=== PATIENT | female | born 1995 | race Caucasian/White ===

== ENCOUNTER 2019-03-18 20:49 | Emergency (ER) | payer BC ==
--- OUTSIDE RECORDS SUMMARY | 2019-03-18 20:51 | XMS REPORT | Summary of Care ---
:1995 Author Organization [facility] Address [address] [place] [address] Care Team Providers Name Role Phone Pcp, Patient Does Not Have A Primary Care Provider Reason for Visit Reason Comments Abdominal Pain since 202903/17/19 Encounter Details Date Type Department Care Team Description 03/18/2019 Nurse Visit [facility] Unknown, Attending Periumbilical abdominal Urgent Care Nurse, [facility] pain (Primary Dx) [address] [place] [address] Allergies Active Allergy Reactions Severity Noted Date Comments Propofol Unknown - See comments 03/16/2019 Vomiting and gets "super sick" documented as of this encounter (statuses as of 03/18/2019) Medications Medication Sig Dispensed Refills Start Date End Date Status norethindrone-ethinyl Take by mouth 0 Active estradiol 1-5 mg-mcg daily. tablet predniSONE 20 mg 3 tabs PO QD X 3 18 tablet 0 11/25/2018 Active tabletIndications: days, then 2 Sinusitis, tabs PO QD X 3 unspecified days, then 1 tab chronicity, PO QD X 3 days unspecified location cephALEXin 500 mg Take 1 capsule 14 capsule 0 03/16/2019 03/23/2019 Active capsuleIndications: by mouth 2 (two) Acute cystitis with times daily for hematuria 7 days. documented as of this encounter (statuses as of 03/18/2019) Active Problems No known active problemsdocumented as of this encounter (statuses as of 2018) Social History Tobacco Use Types Packs/Day Years Used Date Never Smoker Smokeless Tobacco: Never Used Alcohol Use Drinks/Week oz/Week Comments No Sex Assigned at Date Recorded Not on file Job Start Date Occupation Industry Not on file Not on file Not on file Travel History Travel Start Travel End No recent travel history available. documented as of this encounter Last Filed Vital Signs Vital Sign [place] Time Taken Comments Blood Pressure 135/84 03/18/2019 8:36 PM CDT Pulse 102 03/18/2019 8:36 PM CDT Temperature 36.9 C (98.5 F) 03/18/2019 8:36 PM CDT Respiratory Rate 16 03/18/2019 8:36 PM CDT Oxygen Saturation 98% 03/18/2019 8:36 PM CDT Inhaled Oxygen Concentration - - Weight 85.4 kg (188 lb 6 oz) 03/18/2019 8:36 PM CDT Height 170.2 cm (5' 7") 03/18/2019 8:36 PM CDT Body Mass Index 29.5 03/18/2019 8:36 PM CDT documented in this encounter Progress Notes Dionne Mercer RN - 03/18/2019 7:45 PM CDTcomplaining of abdominal pain. Patient reports since last night mid abdomen that radiates around back. Patient reports history of none Patient AAOx4, ambulatory, eupneic, skin pink/warm/dry, no acute distress noted. BP 135/84 | Pulse 102 | Temp 36.9 C (98.5 F) (Oral) | Resp 16 | Ht 5' 7 " (1.702 m) | Wt 188lb 6 oz (85.4 kg) | SpO2 98% | BMI 29.50 kg/m Patient encouraged to seek emergency medical treatment at local emergency room for further evaluation. Case discussed with ELTON Mcdonnell who agrees with treatment plan recommendations. Patient verbalizes understanding and states she will be seen at [facility]. Ambulance transport by 911 EMS offered to patient but refused. Left via private vehicle Patient leaves urgent care @ 7:50 en route to [facility] AAOx4, ambulatory, in no acute distress. documented in this encounter Plan of Treatment Health Maintenance Due Date Last Done Comments VARICELLA VACCINES (1 of 2 - 2007 13+ 2-dose series) HPV VACCINES (1 - Female 2009 3-dose series) DTaP,Tdap,and Td Vaccines (1 2013 - Tdap) INFLUENZA VACCINE 04/21/2019 PAP SMEAR 06/19/2020 06/19/2017 (Previously completed) PNEUMOCOCCAL 0-64 YEARS Aged Out No longer eligible based COMBINED SERIES on patient's age to complete this topic documented as of this encounter Results Not on filedocumented in this encounter Visit Diagnoses Diagnosis Periumbilical abdominal pain - Primary Abdominal pain, periumbilic documented in this encounter Insurance Payer Benefit Plan Subscriber ID Effective Dates Phone Address Type / Group [facility] [id number] 2014-Yenny [phone] [address] PPO/POS [place] [id number] [place] [address] documented as of this encounter
--- OUTSIDE RECORDS SUMMARY | 2019-03-18 20:51 | XMS REPORT ---
:1995 [facility] Address [address] [place] [address] [place] [address] Care Team Providers Name Role Phone Unavailable Unavailable Unavailable Problems This patient has no known problems. Allergies, Adverse Reactions, Alerts This patient has no known allergies or adverse reactions. Medications This patient has no known medications.
--- OUTSIDE RECORDS SUMMARY | 2019-03-18 20:51 | XMS REPORT | Summary of Care ---
:1995 Author Organization [facility] Address [address] [place] [id number] Care Team Providers Name Role Phone Pcp, Patient Does Not Have A Primary Care Provider Reason for Visit Reason Comments DYSURIA Flank Pain Sore Throat Body Aches Encounter Details Date Type Department Care Team Description 03/16/2019 Urgent Care [facility] Unknown, Attending Acute cystitis with hematuria (Primary Dx); Urgent Care Rosie Blandon FNP [address] [facility] [address] [place] [address] Dysuria [address] [facility] [place] [address] Allergies Active Allergy Reactions Severity Noted Date Comments Propofol Unknown - See comments 03/16/2019 Vomiting and gets "super sick" documented as of this encounter (statuses as of 03/16/2019) Medications Medication Sig Dispensed Refills Start Date [...] as of this encounter (statuses as of 03/16/2019) Active Problems No known active problemsdocumented as [...] Sign [place] Time Taken Comments Blood Pressure 128/83 03/16/2019 10:17 AM CDT Pulse 99 03/16/2019 10:17 AM CDT Temperature 37.2 C (98.9 F) 03/16/2019 10:17 AM CDT Respiratory Rate 18 03/16/2019 10:17 AM CDT Oxygen Saturation 97% 03/16/2019 10:17 AM CDT Inhaled Oxygen Concentration - - Weight 85.8 kg (189 lb 3.2 oz) 03/16/2019 10:17 AM CDT Height 170.2 cm (5' 7") 03/16/2019 10:17 AM CDT Body Mass Index 29.63 03/16/2019 10:17 AM CDT documented in this encounter Patient Instructions Patient InstructionsRosie Blandon FNP - 03/16/2019 10:00 AM CDTUA+, culture sent for further testing - Education provided to patient includes: - Increase water intake. - Tylenol/motrin dosage chart reviewed - Wipe front to back for females. - Drink Cranberry juice. - Frequent voiding. - Avoid sexual activity until UTI resolves. - In the future, void before and after sexual activity. - Azo- maximum 2 days as needed for burning. - Follow up in the ER for worsening condition; nausea, vomiting, dizziness, passing out, fever, chills. Bladder Infection,Female (Adult) Urine is normally doesn't have any bacteria in it. But bacteria can get into the urinary tract from the skin around the rectum. Or they can travel in the blood from elsewhere in the body. Once they arein your urinary tract, they can cause infection in the urethra (urethritis), the bladder (cystitis),or the kidneys (pyelonephritis). The most common place for an infection is in the bladder. This is called a bladder infection. This is one of the most common infections in women. Most bladder infections are easily treated. They are not serious unless the infection spreads to the kidney. The phrases "bladder infection," "UTI," and "cystitis" are often used to describe the same thing. But they are not always the same. Cystitis is an inflammation of the bladder. Themost common cause ofcystitis is an infection. Symptoms The infection causes inflammation in the urethra and bladder. This causes many of the symptoms. The most common symptoms of a bladder infection are: Pain or burning when urinating Having to urinate more often than usual Urgent need to urinate Only a small amount of urine comes out Blood in urine Abdominal discomfort. This is usually in the lower abdomen above the pubic bone. Cloudy urine Strong- or bad-smelling urine Unable to urinate (urinary retention) Unable to hold urine in (urinary incontinence) Fever Loss of appetite Confusion (in older adults) Causes Bladder infections are not contagious. You can't get one from someone else, from a toilet seat, or from sharing a bath. The most common cause of bladder infections is bacteria from the bowels. The bacteria get onto the skin around the opening of the urethra. From there, they can get into the urine and travel up to the bladder, causing inflammation and infection. This usually happens because of: Wiping improperly after urinating. Always wipe from front to back. Bowel incontinence Procedures such as having a catheter inserted Older age Not emptying your bladder. This can allow bacteria a chance to grow in your urine. Dehydration Constipation Sex Use of a diaphragm for control Treatment Bladder infections are diagnosed by a urine test. They are treated with antibiotics and usuallyclear up quickly without complications. Treatment helps prevent a more serious kidney infection. Medicines Medicines can help in the treatment of a bladder infection: Take antibiotics until they are used up, even if you feel better. It is important to finish them to make sure the infection has cleared. You can use acetaminophen or ibuprofen for pain, fever, or discomfort, unless another medicine was prescribed. If you have chronic liver or kidney disease, talk with your healthcareprovider beforeusingthese medicines. Also talk with your provider if you've ever had a stomach ulcer or gastrointestinal bleeding, or are taking blood-thinner medicines. If you are givenphenazopydridine to reduce burning with urination, it will cause your urine to become a bright orange color. This can stain clothing. Care and prevention These self-care steps can help prevent future infections: Drink plenty of fluids to prevent dehydration and flush out your bladder. Do thisunless you must restrict fluids for other health reasons, or your doctor told you not to. Proper cleaning after going to the bathroom is important. Wipe from front to back after using thetoilet to prevent the spread of bacteria. Urinate more often. Don't try to hold urine in for a long time. Wear loose-fitting clothes and cotton underwear. Avoid tight-fitting pants. Improve your diet and prevent constipation. Eat more fresh fruit and vegetables, andfiber, and less junk and fatty foods. Avoid sex until your symptoms are gone. Avoid caffeine, alcohol, and spicy foods. These can irritate your bladder. Urinate right after intercourse to flush out your bladder. If you use control pills and have frequent bladder infections, discuss it with your doctor. Follow-up care Call your healthcare provider if all symptoms are not gone after 3 days of treatment. This is especially important if you have repeat infections. If a culture was done, you will be told if your treatment needs to be changed. If directed, you can callto find out the results. If X-rays were done, you will be told if the results will affect your treatment. Call 911 Call 911 if any of the following occur: Trouble breathing Hard to wake up orconfusion Fainting or loss of consciousness Rapid heart rate When to seek medical advice Call your healthcare provider right away if any of these occur: Fever of 100.4F (38.0C) or higher, or as directed by your healthcare provider Symptoms are not betterby the third day of treatment Back or belly (abdominal) pain that gets worse Repeated vomiting, or unable to keep medicine down Weakness or dizziness Vaginal discharge Pain, redness, or swelling in the outer vaginal area (labia) Date Last Reviewed: 05/21/201619990149-0484 [employer] [place] [address], [place] [address]. All rights reserved. This information is not intended as a substitute for professional medical care. Always follow your healthcare professional's instructions. documented in this encounter Progress Notes Rosie Blandon FNP - 03/16/2019 10:00 AM CDT Cc: Chief Complaint Patient presents with DYSURIA Flank Pain Sore Throat Body Aches Danna Isaacs is a 24 year old female presents to with concern for dysuria. She started yesterday with burning after voiding, urinary frequency and back pain. She's been taking otc AZO and increased fluids with little improvement in symptoms. She rates her pain 6/10 and describes as intermittent and burning. Pain is after voiding and she's not getting relief with otc medications. She denies any fever, chills, nausea or vomiting. URINARY TRACT INFECTION Patient presents to clinic today with complaints of dysuria and frequency. Patient denies bladder incontinence, flank pain, hematuria, hesitancy, inability to urinate, nocturia or urgency. This is a new problem. The current episode started yesterday. The problem has been gradually worsening since onset. Her pain is at a severity of 6/10. The pain is moderate. Patient describes pain as burning. Therehas been no fever. She describes her urine color as tea colored. Obstructive symptoms do not includedribbling, incomplete emptying, a slower stream or straining. Associated symptoms include genital pain. Pertinent negatives include no abdominal pain, chills, discharge, fever, nausea, possible or vomiting. She has tried increased fluids for the symptoms.The treatment provided mild relief. She is sexually active. There is no history of hypertension, kidney stones, pyelonephritis, recent infection, recurrent UTIs or STDs. Allergies Danna has No Known Allergies. Medications Outpatient Medications Prior to Visit Medication Sig Dispense Refill predniSONE 20 mg tablet 3 tabs PO QD X 3 days, then 2 tabs PO QD X 3 days, then 1 tab PO QD X 3 days 18 tablet 0 norethindrone-ethinyl estradiol 1-5 mg-mcg tablet Take by mouth daily. No facility-administered medications prior to visit. Histories History reviewed. No pertinent past medical history. History reviewed. No pertinent surgical history. Social History Socioeconomic History Marital status: Single Spouse name: Not on file Number of children: Not on file Years of education: Not on file Highest education level: Not on file Occupational History Not on file Social Needs Financial resource strain: Not on file Food insecurity: Worry: Not on file Inability: Not on file Transportation needs: Medical: Not on file Non-medical: Not on file Tobacco Use Smoking status: Never Smoker Smokeless tobacco: Never Used Substance and Sexual Activity Alcohol use: No Drug use: No Sexual activity: Not on file Lifestyle Physical activity: Days per week: Not on file Minutes per session: Not on file Stress: Not on file Relationships Social connections: Talks on phone: Not on file Gets together: Not on file Attends roman catholic service: Not on file Active member of club or organization: Not on file Attends meetings of clubs or organizations: Not on file Relationship status: Not on file Intimate partner violence: Fear of current or ex partner: Not on file Emotionally abused: Not on file Physically abused: Not on file Forced sexual activity: Not on file Other Topics Concern Not on file Social History Narrative She lives with her 3 y/o daughter. 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 Family History Problem Relation Age of Onset Hypertension Mother Heart Father Review of Systems Constitutional: Negative for chills and fever. Gastrointestinal: Negative for abdominal pain, nausea and vomiting. Genitourinary: Positive for dysuria and frequency. Negative for vaginal discharge, vaginal pain, pelvic pain and incomplete emptying. All other systems reviewed and are negative. Vital Signs BP 128/83 | Pulse 99 | Temp 37.2 C (98.9 F) (Oral) | Resp 18 | Ht 5' 7" (1.702 m) | Wt 189 lb 3.2 oz (85.8 kg) | SpO2 97% | BMI 29.63 kg/m Physical Exam Constitutional: She is oriented to person, place, and time. She appears well- developed and well-nourished. HENT: Right Ear: External ear normal. Left Ear: External ear normal. Nose: Nose normal. Eyes: Conjunctivae are normal. Neck: Normal range of motion. Neck supple. Cardiovascular: Normal rate, regular rhythm and normal heart sounds. Exam reveals no gallop and no friction rub. No murmur heard. Pulmonary/Chest: Effort normal and breath sounds normal. No respiratory distress. She has no wheezes. She has no rales. Abdominal: Soft. Normal appearance and bowel sounds are normal. She exhibits no distension. There isno hepatosplenomegaly. There is no tenderness. There is no rigidity, no rebound, no guarding, no CVAtenderness, no tenderness at McBurney' s point and negative Mayo's sign. Musculoskeletal: Normal range of motion. Neurological: She is alert and oriented to person, place, and time. Skin: Skin is warm and dry. Psychiatric: She has a normal mood and affect. Her behavior is normal. Nursing note and vitals reviewed. Assessment/Plan Danna Isaacs is a 24 year old female presents to with concern for dysuria. 1. Acute cystitis with hematuria - POCT URINALYSIS W SPECIFIC GRAVITY - POSITIVE - URINE CULTURE - URINALYSIS MICROSCOPIC - cephALEXin 500 mg capsule; Take 1 capsule by mouth 2 (two) times daily for 7 days. Dispense: 14 capsule; Refill: 0 - Education provided to patient includes: - Increase water intake. - Tylenol/motrin dosage chart reviewed - Wipe front to back for females. - Drink Cranberry juice. - Frequent voiding. - Avoid sexual activity until UTI resolves. - In the future, void before and after sexual activity. - Azo- maximum 2 days as needed for burning. - Follow up in the ER for worsening condition; nausea, vomiting, dizziness, passing out, fever, chills. 2. Dysuria - POCT URINALYSIS W SPECIFIC GRAVITY - POSITIVE Plan of care, desired health behaviors, goals, and medication discussed with patient. Education resources provided and reviewed with AVS. Patient/guardian/family verbalized understanding & agrees to plan of care. Urgent Care precautions and follow up : 1. Return to clinic if your symptoms should worsen or fail to improve within 72 hours. 2. The care provided in the urgent care was for acute problems only. 3. You should follow up with your primary care provider within 72 hours. 4. Fill and take all your medications as prescribed. 5. Make sure you are staying adequately hydrated. MAY FOLLOW-UP WITH A PROVIDER OF YOUR CHOICE, SUCH : 1. A PHYSICIAN OF YOUR CHOICE OR, IF YOU WISH TO FOLLOW-UP WITHIN THE [facility], MAY TRY THESE OPTIONS (CLINIC APPOINTMENTS AVAILABLE ON [id number] BASIS): 1. SCHEDULE AN APPOINTMENT ONLINE AT [facility] 2. OR CALL THE [facility] AT OR 3. OR CALL YOUR [facility] PHYSICIAN'S OFFICE DIRECTLY IF YOU ARE ALREADY AN ESTABLISHED [facility] PATIENT. After hours care nurse access center available by calling [phone] 24 hours 7 days per week. Rosie CONDE [facility] documented in this encounter Plan of Treatment Name Type Priority Associated Diagnoses Date/Time URINE CULTURE LAB Routine Dysuria 03/16/2019 10:36 AM CDT Acute cystitis with hematuria URINALYSIS MICROSCOPIC LAB Routine Dysuria 03/16/2019 10:36 AM CDT Acute cystitis with hematuria Health Maintenance Due Date Last Done Comments [...] this topic documented as of this encounter Procedures Procedure Name Priority Date/Time Associated Diagnosis Comments POCT URINALYSIS Routine 03/16/2019 10:44 AM Dysuria Results for this CDT Acute cystitis with procedure are in hematuria the results section. documented in this encounter Results POCT URINALYSIS W SPECIFIC GRAVITY (03/16/2019 10:44 AM CDT) POCT U SP GRAV 1.025 1.005 - 1.025 mg/dl POCT PH U 5 5 - 8 mg/dl POCT U LEUK EST pos Negative - Negative POCT U NIT pos Negative - Negative POCT U PROT +++ Negative - Negative POCT U GLU neg Negative - Negative POCT U KETONE neg Negative - Negative POCT U UROBILI normal 0.2 - 1 mg/dl POCT U BILI neg Negative - Negative POCT U BLD about 250 Negative - Negative POCT U COLOR yellow POCT U APPEAR dark Specimen Urine - URINE, CLEAN CATCH documented in this encounter Visit Diagnoses Diagnosis Acute cystitis with hematuria - Primary Acute cystitis Dysuria documented in this encounter Insurance Payer Benefit Plan Subscriber ID Effective Dates Phone Address Type / Group [facility] [id number] 2014-Yenny [phone] [address] PPO/POS [place] t [id number] [place] [address] documented as of this encounter
[2019-03-18 21:52] LABS: Absolute Lymphocytes (CBC) 2.2 K/uL (0.7-4.9); Basophils % 0.7 % (0-1.3); Lymphocytes % 21.4 % (15.3-44.8); MPV 8.6 fL (7.6-11.3); RBC Red Blood Cell Count 4.73 M/uL (3.86-4.86)
[2019-03-18] MEDS ORDERED: MORPHINE 4 MG/ML SYR ONE (22:03)
[2019-03-18] MEDS ORDERED: ONDANSETRON 4 MG/2 ML VIAL ONE (22:03)
[2019-03-18] MEDS ORDERED: NA CHLORIDE 0.9% 1,000 ML ONE (22:04)
[2019-03-18] MEDS ORDERED: FAMOTIDINE 20 MG/2 ML VIAL IV ONE (22:04)
[2019-03-18 22:08] LABS: Albumin 3.9 g/dL (3.4-5.0); Bilirubin Direct 0.1 mg/dL (0-0.2); Bilirubin Total 0.3 mg/dL (0.2-1.0); Potassium 3.8 mmol/L (3.5-5.1); Protein, Total 8.5 g/dL (6.4-8.2)
[2019-03-18 22:44] LABS: Urine Blood TRACE (NEG); Urine Glucose NEGATIVE (NEG); Urine Protein NEGATIVE (NEG); Urine pH 6.5 (5.0-7.0)
--- NOTE | 2019-03-18 23:51 | ER ---
Nurse's Notes [facility] Name: Danna Isaacs Age: 24 yrs Sex: Female : 1995 Arrival Date: 03/18/2019 Time: 20:58 Bed 15 Private MD: None, None Diagnosis: Cystitis Presentation: 03/18 21:30 Presenting complaint: Patient states: R low back pain that radiates to abdomen since aa1 earlier today. Was seen at Urgent Care 2 days ago and diagnosed with UTI and started abx but reports these symptoms today are new. Transition of care: patient was not received from another setting of care. Onset of symptoms was March 18, 2019. Risk Assessment: Do you want to hurt yourself or someone else? Patient reports no desire to harm self or others. Initial Sepsis Screen: Does the patient meet any 2 criteria? No. Patient's initial sepsis screen is negative. Does the patient have a suspected source of infection? No. Patient's initial sepsis screen is negative. Care prior to arrival: None. 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 - Social history:: Smoking status: Patient/guardian denies using tobacco. - Family history:: not pertinent. - Ebola Screening: : No symptoms or risks identified at this time. Screenin:30 Abuse screen: Denies threats or abuse. Denies injuries from another. Nutritional aa1 screening: No deficits noted. Tuberculosis screening: No symptoms or risk factors identified. Fall Risk None identified. Assessment: 21:30 General: Appears in no apparent distress. comfortable, Behavior is calm, cooperative, aa1 appropriate for age. Pain: Complains of pain in right low back Pain radiates to abdomen Quality of pain is described as sharp, Is continuous. Neuro: Level of Consciousness is awake, alert, obeys commands, Oriented to person, place, time, situation, Moves all extremities. Full function Gait is steady, Speech is normal. Cardiovascular: Heart tones S1 S2 present Rhythm is regular. Respiratory: Airway is patent Respiratory effort is even, unlabored. GI: Abdomen is non-distended, Bowel sounds present X 4 quads. Abd is soft X 4 quads. : No signs and/or symptoms were reported regarding the genitourinary system. EENT: No signs and/or symptoms were reported regarding the EENT system. Derm: Skin is intact, is healthy with good turgor, Skin is pink, warm \T\ dry. Musculoskeletal: Circulation, motion, and sensation intact. Capillary refill < 3 seconds. 22:21 Reassessment: Patient appears in no apparent distress at this time. Patient and/or aa1 family updated on plan of care and expected duration. Pain level reassessed. Patient is alert, oriented x 3, equal unlabored respirations, skin warm/dry/pink. Pt taken to CT at this time. 23:43 Reassessment: Patient appears in no apparent distress at this time. Patient and/or aa1 family updated on plan of care and expected duration. Pain level reassessed. Patient is alert, oriented x 3, equal unlabored respirations, skin warm/dry/pink. PA at bedside for reassessment. 03/19 00:10 Reassessment: Patient appears in no apparent distress at this time. Patient is alert, aa1 oriented x 3, equal unlabored respirations, skin warm/dry/pink. Discussed d/c \T\ f/u instructions with pt; denies questions or concerns at this time Patient states feeling better. Vital Signs: 03/18 21:30 BP 138 / 79; Pulse 90; Resp 16; Temp 98.4; Pulse Ox 99% on R/A; Weight 86.18 kg; Height aa1 5 ft. 7 in. (170.18 cm); Pain 8/10; 22:45 BP 131 / 91; Pulse 91; Resp 18; Pulse Ox 100% on R/A; aa1 03/19 00:10 BP 141 / 92; Pulse 83; Resp 16; Temp 98.6; Pulse Ox 100% on R/A; Pain 4/10; aa1 03/18 21:30 Body Mass Index 29.76 (86.18 kg, 170.18 cm) aa ED Course: 03/18 20:58 Patient arrived in ED. es 20:58 None, None is Private Physician. es 21:18 Herman Crane MD is Attending Physician. arnold 21:28 Radiology exam delayed due to lab results not completed at this time. (BUN/Creatinine) nj IV insertion attempt and/or patient not having appropriate IV at this time. 21:30 Arm band placed on right wrist. Patient placed in an exam room, on a stretcher. aa1 21:30 Patient has correct armband on for positive identification. Bed in low position. Call aa1 light in reach. Pulse ox on. NIBP on. 21:32 Herman Boyd PA is PHCP. cp 21:38 Inserted saline lock: 20 gauge in right antecubital area, using aseptic technique. ar5 Blood collected. 21:45 Em Hadley, RN is Primary Nurse. aa1 22:09 Triage completed. aa1 22:34 CT completed. Patient tolerated procedure well. Patient moved to CT via wheelchair. eh Patient moved back from CT. 22:44 CT Abd/Pelvis - IV Contrast Only In Process Unspecified. EDMS 03/19 00:15 No provider procedures requiring assistance completed. IV discontinued, intact, aa1 bleeding controlled, No redness/swelling at site. Pressure dressing applied. Administered Medications: 03/18 21:45 Drug: NS 0.9% 1000 ml Route: IV; Rate: 1 bolus; Site: right antecubital; aa1 22:15 Follow up: IV Status: Completed infusion; IV Intake: 1000ml aa1 21:45 Drug: Zofran 4 mg Route: IVP; Site: right antecubital; aa1 22:45 Follow up: Response: No adverse reaction; Nausea is decreased aa1 21:47 Drug: Pepcid 20 mg Route: IVP; Site: right antecubital; aa1 23:34 Follow up: Response: No adverse reaction; Pain is decreased aa1 21:48 Drug: morphine 4 mg Route: IVP; Site: right antecubital; aa1 22:45 Follow up: Response: No adverse reaction; Pain is decreased aa1 23:45 CANCELLED (Other Intervention Used): Rocephin - (cefTRIAXone) 1 grams IVPB once over 30 aa1 mins; (mix in 50 mL NS) 23:50 Drug: Rocephin 1 grams Route: IV; Rate: calculated rate; Site: right antecubital; aa1 23:57 Follow up: IV Status: Completed infusion aa1 23:57 Drug: Bactrim (160 mg-800 mg (DS) 1 tablet Route: PO; aa1 03/19 00:22 Follow up: Response: No adverse reaction; Medication administered at discharge. aa1 00:10 Drug: TORadol 30 mg Route: IVP; Site: right antecubital; aa1 00:23 Follow up: Response: No adverse reaction; Medication administered at discharge. aa1 Intake: 03/18 22:15 IV: 1000ml; Total: 1000ml. aa1 Outcome: 23:51 Discharge ordered by . j carlos 03/19 00:15 Discharged to home ambulatory, with family. aa1 Condition: good Discharge instructions given to patient, family, Instructed on discharge instructions, follow up and referral plans. medication usage, Demonstrated understanding of instructions, follow-up care, medications, Prescriptions given X 3. 00:25 Patient left the ED. aa1 Signatures: Dispatcher [employer] EDEm Grubbs RN RN aa1 Herman Crane MD MD cha Salyer, Ki Villafana Corey, ZIA PA Tray Bridges, Erica ar5
--- NOTE | 2019-03-18 23:52 | EDPHYS ---
Physician Documentation [facility] Name: Danna Isaacs Age: 24 yrs Sex: Female : 1995 Arrival Date: 03/18/2019 Time: 20:58 Bed 15 Private MD: None, None ED Physician Herman Crane HPI: 03/18 21:25 This 24 yrs old Female presents to ER via Unassigned with complaints of arnodl Abdominal Pain, Back Pain. 21:25 The patient presents with pain that is acute, with no known mechanism of injury. The arnold symptoms are located in the lumbar area, mid back area, left low back, left mid back and right low back. Onset: The symptoms/episode began/occurred 2 day(s) ago. 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 - Social history:: Smoking status: Patient/guardian denies using tobacco. - Family history:: not pertinent. - Ebola Screening: : No symptoms or risks identified at this time. ROS: 21:25 Constitutional: Negative for fever, chills, and weight loss, Eyes: Negative for injury, arnold pain, redness, and discharge, ENT: Negative for injury, pain, and discharge, Neck: Negative for injury, pain, and swelling, Cardiovascular: Negative for chest pain, palpitations, and edema, Respiratory: Negative for shortness of breath, cough, wheezing, and pleuritic chest pain, Back: Negative for injury and pain, : Negative for injury, bleeding, discharge, and swelling, MS/Extremity: Negative for injury and deformity, Skin: Negative for injury, rash, and discoloration, Neuro: Negative for headache, weakness, numbness, tingling, and seizure, Psych: Negative for depression, anxiety, suicide ideation, homicidal ideation, and hallucinations, Allergy/Immunology: Negative for hives, rash, and allergies, Endocrine: Negative for neck swelling, polydipsia, polyuria, polyphagia, and marked weight changes, Hematologic/Lymphatic: Negative for swollen nodes, abnormal bleeding, and unusual bruising. 21:25 Abdomen/GI: Positive for abdominal pain, nausea, of the right upper quadrant, left upper quadrant, right lower quadrant and left lower quadrant. Exam: 21:25 Constitutional: This is a well developed, well nourished patient who is awake, alert, arnold and in no acute distress. Head/Face: Normocephalic, atraumatic. Eyes: Pupils equal round and reactive to light, extra-ocular motions intact. Lids and lashes normal. Conjunctiva and sclera are non-icteric and not injected. Cornea within normal limits. Periorbital areas with no swelling, redness, or edema. ENT: Nares patent. No nasal discharge, no septal abnormalities noted. Tympanic membranes are normal and external auditory canals are clear. Oropharynx with no redness, swelling, or masses, exudates, or evidence of obstruction, uvula midline. Mucous membranes moist. Neck: Trachea midline, no thyromegaly or masses palpated, and no cervical lymphadenopathy. Supple, full range of motion without nuchal rigidity, or vertebral point tenderness. No Meningismus. Chest/axilla: Normal chest wall appearance and motion. Nontender with no deformity. No lesions are appreciated. Cardiovascular: Regular rate and rhythm with a normal S1 and S2. No gallops, murmurs, or rubs. Normal PMI, no JVD. No pulse deficits. Respiratory: Lungs have equal breath sounds bilaterally, clear to auscultation and percussion. No rales, rhonchi or wheezes noted. No increased work of breathing, no retractions or nasal flaring. Back: No spinal tenderness. No costovertebral tenderness. Full range of motion. Skin: Warm, dry with normal turgor. Normal color with no rashes, no lesions, and no evidence of cellulitis. MS/ Extremity: Pulses equal, no cyanosis. Neurovascular intact. Full, normal range of motion. Neuro: Awake and alert, GCS 15, oriented to person, place, time, and situation. Cranial nerves II-XII grossly intact. Motor strength 5/5 in all extremities. Sensory grossly intact. Cerebellar exam normal. Normal gait. Psych: Awake, alert, with orientation to person, place and time. Behavior, mood, and affect are within normal limits. 21:25 Abdomen/GI: Inspection: abdomen appears normal, Bowel sounds: normal, Palpation: moderate abdominal tenderness, in all quadrants, Liver: no appreciated palpable abnormalities, Hernia: not appreciated. Vital Signs: 21:30 BP 138 / 79; Pulse 90; Resp 16; Temp 98.4; Pulse Ox 99% on R/A; Weight 86.18 kg; Height aa1 5 ft. 7 in. (170.18 cm); Pain 8/10; 22:45 BP 131 / 91; Pulse 91; Resp 18; Pulse Ox 100% on R/A; 1 03/19 00:10 BP 141 / 92; Pulse 83; Resp 16; Temp 98.6; Pulse Ox 100% on R/A; Pain 4/10; aa1 03/18 21:30 Body Mass Index 29.76 (86.18 kg, 170.18 cm) aa MDM: 03/18 21:18 Patient medically screened. [facility] 21:27 Data reviewed: vital signs, nurses notes, lab test result(s), radiologic studies, CT [facility] scan. 23:46 ED course: Patient reports she is currently taking prescribed keflex for a UTI cp diagnosed at Urgent Care 2 days ago. 03/18 21:25 Order name: Basic Metabolic Panel; Complete Time: 23:08 [facility] 03/18 23:05 Interpretation: Normal except: GFR 76. 03/18 21:25 Order name: CBC with Diff; Complete Time: 23:08 [facility] 03/18 23:06 Interpretation: Normal except: EOSINOPHIL % 7.9; EOSA 0.8. 03/18 21:25 Order name: Creatinine for Radiology; Complete Time: 23:08 [facility] 03/18 21:25 Order name: Hepatic Function; Complete Time: 23:08 [facility] 03/18 23:06 Interpretation: Normal except: ALK 131; TP 8.5; GLOB 4.6; A/G 0.8. 03/18 21:25 Order name: Lipase; Complete Time: 23:08 [facility] 03/18 21:25 Order name: Urine Culture [facility] 03/18 21:25 Order name: CT Abd/Pelvis - IV Contrast Only [facility] 03/18 21:49 Order name: Urine Dipstick--Ancillary (enter results); Complete Time: 23:08 [facility] 03/18 21:49 Order name: Urine --Ancillary (enter results); Complete Time: 23:08 [facility] 03/18 23:41 Order name: Urine Microscopic Only cp 03/18 21:25 Order name: IV Saline Lock; Complete Time: 21:43 arnold 03/18 21:25 Order name: Labs collected and sent; Complete Time: 21:43 [facility] 03/18 21:25 Order name: Urine Dipstick-Ancillary (obtain specimen); Complete Time: 21:43 [facility] 03/18 21:25 Order name: Urine Test (obtain specimen); Complete Time: 21:43 arnold Administered Medications: 21:45 Drug: NS 0.9% 1000 ml Route: IV; Rate: 1 bolus; Site: right antecubital; aa1 22:15 Follow up: IV Status: Completed infusion; IV Intake: 1000ml aa1 21:45 Drug: Zofran 4 mg Route: IVP; Site: right antecubital; aa1 22:45 Follow up: Response: No adverse reaction; Nausea is decreased aa1 21:47 Drug: Pepcid 20 mg Route: IVP; Site: right antecubital; aa1 23:34 Follow up: Response: No adverse reaction; Pain is decreased aa1 21:48 Drug: morphine 4 mg Route: IVP; Site: right antecubital; aa1 22:45 Follow up: Response: No adverse reaction; Pain is decreased aa1 23:45 CANCELLED (Other Intervention Used): Rocephin - (cefTRIAXone) 1 grams IVPB once over 30 aa1 mins; (mix in 50 mL NS) 23:50 Drug: Rocephin 1 grams Route: IV; Rate: calculated rate; Site: right antecubital; aa1 23:57 Follow up: IV Status: Completed infusion aa1 23:57 Drug: Bactrim (160 mg-800 mg (DS) 1 tablet Route: PO; aa1 03/19 00:22 Follow up: Response: No adverse reaction; Medication administered at discharge. aa1 00:10 Drug: TORadol 30 mg Route: IVP; Site: right antecubital; aa1 00:23 Follow up: Response: No adverse reaction; Medication administered at discharge. aa1 Disposition: 07:46 Co-signature as Attending Physician, Herman HEWITT I agree with the assessment and [facility] plan of care. Disposition: 03/18/19 23:51 Discharged to Home. Impression: Cystitis. - Condition is Stable. - Discharge Instructions: Urinary Tract Infection, Adult. - Prescriptions for Zofran 4 mg Oral Tablet - take 1 tablet by ORAL route every 12 hours As needed; 20 tablet. Tramadol 50 mg Oral Tablet - take 1 tablet by ORAL route every 8 hours as needed; 15 tablet. Bactrim DS 800- 160 mg Oral Tablet - take 1 tablet by ORAL route every 12 hours for 7 days; 14 tablet. - Medication Reconciliation Form, Thank You Letter, Antibiotic Education, Prescription Opioid Use form. - Follow up: Private Physician; When: 2 - 3 days; Reason: Recheck today's complaints. - Problem is new. - Symptoms have improved. Signatures: Dispatcher [employer] EDMS Em Hadley RN RN aa1 Herman Crane MD MD cha Page, Corey PA PA cp Corrections: (The following items were deleted from the chart) 03/18 23:09 23:06 Normal except: EOSINOPHIL % 7.9. cp cp 23:45 23:42 Rocephin - (cefTRIAXone) 1 grams IVPB once over 30 mins; (mix in 50 mL NS) aa1 ordered. cp 23:45 23:44 Rocephin - (cefTRIAXone) 1 grams IVPB once over 30 mins; (mix in 50 mL NS) aa1 ordered. aa1 03/19 00:25 03/18 23:51 03/18/2019 23:51 Discharged to Home. Impression: Cystitis. Condition is aa1 Stable. Forms are Medication Reconciliation Form, Thank You Letter, Antibiotic Education, Prescription Opioid Use. Follow up: Private Physician; When: 2 - 3 days; Reason: Recheck today's complaints. Problem is new. Symptoms have improved. cp
[2019-03-19] MEDS ORDERED: CEFTRIAXONE/SWI 1gm 1 GM/10 ML SYR ONE (00:05)
[2019-03-19] MEDS ORDERED: SMZ./TMP. 800/160 MG TABLET ONE (00:12)
[2019-03-19] MEDS ORDERED: KETOROLAC 30 MG/ML INJ ONE (00:20)
[2019-03-19 00:55] LABS: Urine Bacteria <20 /HPF (<20); Urine Culture Reflex Order NOT NEEDED
--- NOTE | 2019-03-19 11:03 | RAD REPORT ---
EXAM DESCRIPTION: CT Abdomen and Pelvis With Intravenous Contrast CLINICAL HISTORY: The patient is 24 years old and is Female; ABD PAIN TECHNIQUE: Axial computed tomography images of the abdomen and pelvis with intravenous contrast. S agittal and coronal reformatted images were created and reviewed. This CT exam was performed using one or more of the following dose reduction techniques: automated exposure control, adjustment of t he mA and/or kV according to patient size, and/or use of iterative reconstruction technique. COMPARISON: No relevant prior studies available. FINDINGS: LUNG BASES: Unremarkable. No mass. No consolidation. ABDOMEN: LIVER: Unremarkable. No mass. GALLBLADDER AND BILE DUCTS: The gallbladder is contracted. PANCREAS: No ductal dilation. No mass. SPLEEN: Unremarkable. ADRENALS: Unremarkable. No mass. KIDNEYS AND URETERS: Mild urothelial thickening of both ureters is noted. The kidneys enhance sy mmetrically. There is no hydronephrosis or hydroureter of either kidney. No obstructing renal or uret eral calculus is seen. STOMACH AND BOWEL: The stomach is distended with food contents. The small bowel is normal in katie iber. A moderate amount stool is present throughout colon. There is no mucosal thickening or evidence of bowel obstruction. PELVIS: APPENDIX: The appendix is normal in caliber without surrounding inflammation. BLADDER: Mild bladder wall thickening is present. There is suggestion of minimal surrounding inf lammatory stranding. REPRODUCTIVE: Unremarkable as visualized. ABDOMEN and PELVIS: INTRAPERITONEAL SPACE: Unremarkable. No free air. No significant fluid collection. BONES/JOINTS: No acute fracture. SOFT TISSUES: The soft tissues are normal. VASCULATURE: Unremarkable. No abdominal aortic aneurysm. LYMPH NODES: Unremarkable. No enlarged lymph nodes. IMPRESSION: 1. Mild bladder wall thickening with surrounding inflammatory stranding suggestive of cystitis. 2. Findings suggestive of mild bilateral ureteritis. Electronically signed by: Melissa Olson MD 03/18/2019 10:56 PM CDT Due to temporary technical issues with the PACS/Fluency reporting system, reports are being signed by the in house radiologist as a courtesy to ensure prompt reporting. The interpreting radiologist is f ully responsible for the content of the report.
== END 2019-03-19 00:25 | disposition home or self-care (01) ==
LOC: ER 20:49
DX: N30.90 Cystitis, unspecified without hematuria (principal)
CPT/HCPCS: 36415; 74177; 80048; 80076; 81003; 81015; 81025; 83690; 85025; 87086; 87088; 96374; 96375; 99284; J2405; J7030; Q9967